=== PATIENT | male | born 2000 | race Caucasian/White ===

== ENCOUNTER 2019-07-03 12:29 | Emergency (ER) | payer SELFPAY ==
[2019-07-03 12:40] VITALS: BP 137/84; PULSE 118; RESP 14; TEMP 37.2; O2SAT 98; BMI 22.9
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
[2019-07-03 16:14] LABS: Urine Chlamydia NOT DETECTED; Urine N gonorrhoeae NOT DETECTED
== END 2019-07-03 15:01 | disposition home or self-care (01) ==
PROVIDERS: Emergency Provider Nurse Practitioner
DX: F30.9 Manic episode, unspecified (principal); Z11.3 Encounter for screening for infections with a predominantly sexual mode of transmission
CPT/HCPCS: 87491; 87591; 99281; 99282